=== PATIENT | female | born 2000 | race Caucasian/White ===

== ENCOUNTER 2021-05-11 20:02 | Emergency (ER) | payer MEDICAID ==
[~2021-05-11] VITALS: Ht 162.6 cm; Wt 65.9 kg
[2021-05-11] MEDS ORDERED: NICOTINE 14 MG/24 HOUR PATCH TD ONE (21:15)
[2021-05-11 21:30] VITALS: BP 121/75
== END 2021-05-11 21:45 | disposition home or self-care (01) ==
LOC: EMS 20:06
DX: S00.83XA Contusion of other part of head, initial encounter (principal); F43.12 Post-traumatic stress disorder, chronic; J45.909 Unspecified asthma, uncomplicated; F17.210 Nicotine dependence, cigarettes, uncomplicated; X58.XXXA Exposure to other specified factors, initial encounter; Y93.89 Activity, other specified; Y92.89 Other specified places as the place of occurrence of the external cause; Y99.8 Other external cause status
CPT/HCPCS: 82962; 99283